=== PATIENT | male | born 1980 | race Two or more races ===

== ENCOUNTER 2024-12-22 21:02 | Inpatient (IN) | payer OTHER ==
[~2024-12-22] VITALS: Ht 160 cm; Wt 59.0 kg
--- NOTE | 2024-12-22 21:50 | ED.PDOC ---
History of present illness HPI Comments 44 y/o Australian speaking M, with a Hx of DM, is [id number] his sober living facility for hyperglycemia. Patient is a poor historian. He reports on being dropped off after being found hyperglycemic. He takes no medications, currently, for his DM. Patient reports on being asymptomatic. Chief Complaint: Hyperglycemia Time Seen by MD: 21:40 History of present illness: Nurses Notes, Medications, Allergies Allergies: Coded Allergies: NO KNOWN ALLERGIES (Unverified , 12/22/24) Information Source: Patient Mode of Arrival: Ambulatory Timing: Hours Duration: Since onset Prehospital treatment: Accucheck Past Medical History PAST MEDICAL HISTORY: DM All Other Systems: Reviewed and Negative (Comprehensive review of systems are negative unless stated in HPI) Physical Exam General Appearance: Mild Distress, Normal HEENT: Normal ENT Inspection, Pharynx Normal, TMs Normal Neck: Full Range of Motion, Non-Tender, Normal, Normal Inspection Respiratory: Chest Non-Tender, Lungs Clear, No Accessory Muscle Use, No Respiratory Distress, Normal Breath Sounds Cardiovascular: No Edema, No JVD, No Murmur, No Gallop, Normal Peripheral Pulses, Regular Rate/Rhythm Breast Exam: Deferred Gastrointestinal: No Organomegaly, Non Tender, No Pulsatile Mass, Normal Bowel Sounds, Soft Genitalia: Deferred Pelvic: Deferred Rectal: Deferred Extremities: No calf tenderness, Normal capillary refill, Normal inspection, Normal range of motion, Non-tender, No pedal edema Musculoskeletal : Apperance: Normal Neurologic: Alert, floor sander II-XII nml as Tested, No Motor Deficits, Normal Affect, Normal Mood, No Sensory Deficits Cerebellar Function: Normal Reflexes: Normal Skin: Dry, Normal Color, Warm Lymphatic: No Adenopathy Was a procedure done? Was a procedure done?: No Differential Diagnosis (DM) Differential Diagnosis: DKA, Hyperglycemia, Other (medication noncompliance ) X-Ray, Labs, Meds, VS Vital Signs Date Time Temp Pulse Resp B/P (MAP) Pulse Ox O2 Delivery O2 Flow Rate FiO2 12/22/24 21:05 96.9 95 20 133/85 100 96.9 Lab Test 12/22/24 22:16 12/22/24 21:45 Range/Units White Blood Count 3.5 L 4.4-10.8 10^3/uL Red Blood Count 3.50 L 4.5-5.90 10^6/uL Hemoglobin 10.9 L 13.5-17.5 g/dL Hematocrit 32.3 L 41.0-53.0 % Mean Corpuscular Volume 92.4 80.0-100.0 fL Mean Corpuscular Hemoglobin 31.2 28.0-32.0 pg Mean Corpuscular Hemoglobin Concent 33.7 32.0-36.0 g/dL Red Cell Distribution Width 13.9 11.8-14.3 % Platelet Count 192 140-450 10^3/uL Mean Platelet Volume 7.6 6.9-10.8 fL Neutrophils (%) (Auto) 53.3 37.0-80.0 % Lymphocytes (%) (Auto) 33.6 10.0-50.0 % Monocytes (%) (Auto) 11.0 0.0-12.0 % Eosinophils (%) (Auto) 1.5 0.0-7.0 % Basophils (%) (Auto) 0.6 0.0-2.0 % Neutrophils # (Auto) 1.8 1.6-8.6 10 ^3/uL Lymphocytes # (Auto) 1.2 0.4-5.4 10 ^3/uL Monocytes # (Auto) 0.4 0-1.3 10 ^3/uL Eosinophils # (Auto) 0.1 0-0.8 10 ^3/uL Basophils # (Auto) 0 0-0.2 10 ^3/uL Nucleated Red Blood Cells 0.0 % Sodium Level 125 L 136-145 mmol/L Potassium Level 4.1 3.5-5.1 mmol/L Chloride Level 90 L 98-107 mmol/L Carbon Dioxide Level 27 20-31 mmol/L Anion Gap 8 5-15 Blood Urea Nitrogen 8 L 9-23 mg/dL Creatinine 1.39 H 0.700-1.30 mg/dL Glomerular Filtration Rate Calc 63 >90 mL/min BUN/Creatinine Ratio 5.8 L 10.0-20.0 Serum Glucose 668 *H 74-106 mg/dL Calcium Level 9.2 8.7-10.4 mg/dL Total Bilirubin 0.6 0.2-1.0 mg/dL Aspartate Amino Transferase (AST) 45 H 13-40 U/L Alanine Aminotransferase (ALT) 42 H 7-40 U/L Alkaline Phosphatase 244 H 46-116 U/L Total Protein 7.9 5.7-8.2 g/dL Albumin 4.1 3.2-4.8 g/dL Blood Gas Specimen Type Venous Blood Gas Sample Site Vbg - n/a Blood Gas Patient Temperature 37.0 Arterial Blood Date Drawn [id number] Boubacar Test N/a Venous Blood pH 7.426 7.320-7.430 Venous Blood pCO2 at Patient Temp 37.9 L 38.0-54.0 mmHg Venous Blood pO2 at Patient Temp 66.2 H 23.0-48.0 mmHg Venous Blood HCO3 24.4 22.0-29.0 mmol/L Venous Blood Base Excess 0.3 -2.0-3.0 mmol/L Blood Gas Modality Room air FiO2 % 21.0 Specimen Drawn By Lab Time of 1ST Reevaluation: 22:10 Reevaluation 1ST: Unchanged Patient Education/Counseling: Diagnosis, Treatment, Need For Follow Up Family Education/Counseling: No Family Present SEPSIS Sepsis Screen Date sepsis recognized/suspect: Dec 22, 2024 Time Sepsis recognized/suspect: 2107 Recent Procedure: No On Antibiotic Therapy: No Respiratory Rate >20: No Heart Rate >90: Yes Temp<36 C (96.8 F) or >38.3 C: No SBP <90 or MAP <65 mmHG: No New Acute Mental Status Change: No Is the patient on CPAP, BIPAP,: No Physician Orders Urinalysis (12/22/24 21:29) Venous Blood Gas (12/22/24 21:29) NS (12/22/24 23:45) Vital Signs Date Time Temp Pulse Resp B/P (MAP) Pulse Ox O2 Delivery O2 Flow Rate FiO2 12/22/24 21:05 96.9 95 20 133/85 100 96.9 Laboratory Tests Test 12/22/24 22:16 White Blood Count 3.5 10^3/uL (4.4-10.8) L Departure 1 Departure Time of Disposition: 23:41 Impression: Primary Impression: Hyperglycemia Additional Impressions: Uncontrolled type 2 diabetes mellitus Acute renal injury Disposition: ADMITTED INPATIENT Condition: Guarded Discharged With: Self Comments Lab results reviewed. Patient has severe hyperglycemia in the 600s. Also acute renal injury with creatinine elevated 1.38. Patient was given IV fluids and insulin. Patient will need to be admitted for supportive care and further wo rkup. Critical Care Note Critical Care Time?: Yes (35 min-critical care time only) Critical care comment: Total critical care time: Approximately 36 minutes Due to a high probability of clinically significant, life threatening deterioration, the patient required my highest level of preparedness to intervene emergently and I personally spent this critical care time directly and personally managing the patient. This critical care time included obtaining a history; examining the patient; pulse oximetry; ordering and review of studies; arranging urgent treatment with development of a management plan; evaluation of patient's response to treatment; frequent reassessment; and, discussions with other providers. This critical care time was performed to assess and manage the high probability of imminent, life-threatening deterioration that could result in multi-organ failure. It was exclusive of separately billable procedures and treating other patients. Stability Stability form required: No Heart Score Heart Score: Heart Score Response (Comments) Value History N/A 0 EKG N/A 0 Age N/A 0 Risk Factors N/A 0 Troponin N/A 0 Total 0 I personally scribed for DANIELA GOODRICH MD ([email or web address]) on 12/22/24 at 21:50. Electronically submitted by Seth Araya ([email or web address]). DANIELA GOODRICH MD Dec 22, 2024 21:50
[2024-12-22 22:30] LABS: Hematocrit 32.3 % (41.0-53.0); Hemoglobin 10.9 g/dL (13.5-17.5); Mean Corpuscular Hemoglobin 31.2 pg (28.0-32.0); Mean Corpuscular Volume 92.4 fL (80.0-100.0); Nucleated Red Blood Cells % 0.0 %
[2024-12-22 22:47] LABS: Albumin 4.1 g/dL (3.2-4.8); Anion Gap 8 (5-15); BUN/Creatinine Ratio 5.8 (10.0-20.0); Calcium 9.2 mg/dL (8.7-10.4); Carbon Dioxide 27 mmol/L (20-31); Potassium 4.1 mmol/L (3.5-5.1); Total Protein 7.9 g/dL (5.7-8.2)
[2024-12-22 22:48] LABS: Bilirubin, Total 0.6 mg/dL (0.2-1.0)
[2024-12-22 22:50] LABS: Alanine Aminotransferase 42 U/L (7-40); Alkaline Phosphatase 244 U/L (46-116); Blood Urea Nitrogen 8 mg/dL (9-23); Chloride 90 mmol/L (98-107); Sodium 125 mmol/L (136-145)
[2024-12-22 22:57] LABS: Glucose 668 mg/dL (74-106)
[2024-12-23] VITALS (7 sets, daily range): BP systolic 105–134; BP diastolic 67–90; PULSE 84–95; RESP 16–18; TEMP 97.3–98.4; O2SAT 99–100
[2024-12-23 00:29] LABS: Magnesium 2.0 mg/dL (1.6-2.6)
[2024-12-23] MEDS ORDERED: MORPHINE SULFATE INJ 2 MG/ml SYRG IV PRN (00:30)
[2024-12-23] MEDS ORDERED: DEXTROSE (50%) 50ML SYRG IV PRN ×4 (00:30→16:30)
[2024-12-23] MEDS: SODIUM CHLORIDE 0.9% 1,000 ML IV SCH ×2 (00:30→04:58)
[2024-12-23] MEDS ORDERED: INSULIN DRIP 100 UNIT/100ML 100 ML IV SCH (00:30)
[2024-12-23 00:33] LABS: INR 0.97 (0.9-1.15); Partial Thromboplastin Time 28.2 SEC (24.5-34.5); Prothrombin Time 10.3 sec (9.3-11.8)
--- NOTE | 2024-12-23 00:37 | DVHHPRES ---
History of Present Illness Resident Creating Document: ANJALI STANTON RESIDENT History of Present Illness Roscoe Sun is a 44-year-old male patient who presents to the ED with chief complaint of blurry vision for the last week, associated with polyuria, polydipsia, diarrhea and dizziness. Patient says that he is currently homeless, previously lived in a jail but was kicked out approximately three months ago, and he has not been compliant with his medication (including his diabetic medication). He has been checking his blood glucose levels recently, but his glucometer could no longer read his glycemia values. Denies any other associated symptoms. Past medical history: Diabetes non-insulin dependent, diabetic foot status post amputation, alcohol abuse Surgical history: 1st right toe amputation approximately four months ago Family history: Father and mother have diabetes Social history: Currently he is homeless (next of kin would be mother). Ethanol abuse (four large beers a day) he has been sober for the past 15 days. Denies current tobacco and other drug abuse Allergies: Denies Home medication: Does not recall name of medication Patient seen and examined at bedside. Currently still complains of blurry vision. Patient will be admitted to ICU to initiate insulin drip. Past Medical History Per HPI Past Surgical History Per HPI Family History Per HPI Past Social History Per HPI Review of Systems Review of Systems Per HPI Allergies: Coded Allergies: NO KNOWN ALLERGIES (Unverified , 12/22/24) Medications Current Medications Medications Dose Ordered Sig/[place] Route Start Time Stop Time Status Last Admin Dose Admin Sodium Chloride 1,000 ml @ 60 mls/hr [id number] IV 12/23/24 00:30 Acetaminophen 325 mg Q4HP PRN PO 12/23/24 00:30 Enoxaparin Sodium 40 mg DAILY SC 12/23/24 10:00 Morphine Sulfate 2 mg Q4HPRN PRN IV 12/23/24 00:30 Insulin Human (Reg)/Sodium Chloride 100 ml @ 0.5 mls/hr Q24H IV 12/23/24 00:30 Diagnostic Test (Pha) 1 strip Q90MIN 12/23/24 01:30 Dextrose 50 ml PRN PRN IV 12/23/24 00:30 Insulin Glargine 15 units DAILY SC 12/24/24 10:00 Exam Vital Signs Vital Signs Date Time Temp Pulse Resp B/P (MAP) Pulse Ox O2 Delivery O2 Flow Rate FiO2 12/22/24 21:05 96.9 95 20 133/85 100 96.9 Exam Patient lying in bed, in no acute distress General: Lucid, cachectic, afebrile, mucosae are moist, bad dental hygiene Cardiovascular: Normal S1 and S2. No murmurs, gallops or rubs Respiratory: Normal ventilation mechanics. Clear lung sounds on auscultation Abdomen: Soft, nontender, no organomegaly, normal bowel sounds MSK/skin: Mobilizes 4 limbs. Skin is dry and warm Neurological: Oriented in 3 spheres. No motor no sensitive deficits. Pupils are isocoric and reactive Labs/Xrays Labs Test 12/22/24 22:26 12/22/24 22:16 12/22/24 21:45 Range/Units White Blood Count 3.5 L 4.4-10.8 10^3/uL Red Blood Count 3.50 L 4.5-5.90 10^6/uL Hemoglobin 10.9 L 13.5-17.5 g/dL Hematocrit 32.3 L 41.0-53.0 % Mean Corpuscular Volume 92.4 80.0-100.0 fL Mean Corpuscular Hemoglobin 31.2 28.0-32.0 pg Mean Corpuscular Hemoglobin Concent 33.7 32.0-36.0 g/dL Red Cell Distribution Width 13.9 11.8-14.3 % Platelet Count 192 140-450 10^3/uL Mean Platelet Volume 7.6 6.9-10.8 fL Neutrophils (%) (Auto) 53.3 37.0-80.0 % Lymphocytes (%) (Auto) 33.6 10.0-50.0 % Monocytes (%) (Auto) 11.0 0.0-12.0 % Eosinophils (%) (Auto) 1.5 0.0-7.0 % Basophils (%) (Auto) 0.6 0.0-2.0 % Neutrophils # (Auto) 1.8 1.6-8.6 10 ^3/uL Lymphocytes # (Auto) 1.2 0.4-5.4 10 ^3/uL Monocytes # (Auto) 0.4 0-1.3 10 ^3/uL Eosinophils # (Auto) 0.1 0-0.8 10 ^3/uL Basophils # (Auto) 0 0-0.2 10 ^3/uL Nucleated Red Blood Cells 0.0 % Sodium Level 125 L 136-145 mmol/L Potassium Level 4.1 3.5-5.1 mmol/L Chloride Level 90 L 98-107 mmol/L Carbon Dioxide Level 27 20-31 mmol/L Anion Gap 8 5-15 Blood Urea Nitrogen 8 L 9-23 mg/dL Creatinine 1.39 H 0.700-1.30 mg/dL Glomerular Filtration Rate Calc 63 >90 mL/min BUN/Creatinine Ratio 5.8 L 10.0-20.0 Serum Glucose 668 *H 74-106 mg/dL Hemoglobin A1c 12.6 H <5.7 % A1C Calcium Level 9.2 8.7-10.4 mg/dL Phosphorus Level 3.4 2.4-5.1 mg/dL Magnesium Level 2.0 1.6-2.6 mg/dL Total Bilirubin 0.6 0.2-1.0 mg/dL Aspartate Amino Transferase (AST) 45 H 13-40 U/L Alanine Aminotransferase (ALT) 42 H 7-40 U/L Alkaline Phosphatase 244 H 46-116 U/L Total Protein 7.9 5.7-8.2 g/dL Albumin 4.1 3.2-4.8 g/dL Blood Gas Specimen Type Venous Blood Gas Sample Site Vbg - n/a Blood Gas Patient Temperature 37.0 Arterial Blood Date Drawn [id number] Boubacar Test N/a Venous Blood pH 7.426 7.320-7.430 Venous Blood pCO2 at Patient Temp 37.9 L 38.0-54.0 mmHg Venous Blood pO2 at Patient Temp 66.2 H 23.0-48.0 mmHg Venous Blood HCO3 24.4 22.0-29.0 mmol/L Venous Blood Base Excess 0.3 -2.0-3.0 mmol/L Blood Gas Modality Room air FiO2 % 21.0 Specimen Drawn By Lab SEPSIS Sepsis Screen Date sepsis recognized/suspect: Dec 22, 2024 Time Sepsis recognized/suspect: 2107 Recent Procedure: No On Antibiotic Therapy: No Respiratory Rate >20: No Heart Rate >90: Yes Temp<36 C (96.8 F) or >38.3 C: No SBP <90 or MAP <65 mmHG: No New Acute Mental Status Change: No Is the patient on CPAP, BIPAP,: No Physician Orders Urinalysis (12/22/24 21:29) Venous Blood Gas (12/22/24 21:29) Sodium Chloride 0.9% (12/22/24 23:45) Drug Screen (12/22/24 23:54) PTPTT (12/22/24 23:54) Beta-Hydroxybutyrate (12/22/24 23:54) Lactic Acid W/ Reflex Order (12/22/24 23:54) Thyroid Stimulating Hormone (12/22/24 23:54) Vitamin D, 25-Hydroxy (12/22/24 23:54) Vitamin B12 (12/22/24 23:54) Osmolality, Serum (12/23/24 00:17) Chest Xray 1 View (12/23/24 00:18) Sodium Chloride 0.9% (12/23/24 00:30) Hiv 1&2 Antibody (12/23/24 00:20) Acute Hepatitis Panel (12/23/24 00:20) Treponema Pallidum Antibody (12/23/24 00:20) Chlamydia/Gc Amplification (12/23/24 00:20) Blood Alcohol (12/23/24 00:20) Admit (12/23/24 00:24) Code Status (12/23/24 00:24) Acetaminophen Tablet (Tylenol Tablet) (12/23/24 00:30) Enoxaparin Sodium (Lovenox) (12/23/24 10:00) Npo (Nothing By Mouth) Diet (12/23/24 Breakfast) Echo 2d Mode Cardiac Dop (12/23/24 00:24) Carotid Duplx W Color Dop (12/23/24 00:24) Morphine Sulfate Injection (12/23/24 00:30) Oxygen By Nasal Cannula (12/23/24 00:24) Stat Ekg For Chest Pain (12/23/24 00:24) Notify Md Of Changes From Base (12/23/24 00:24) Tumbling Machine Operator For 24 Hours (12/23/24 00:24) Emergency Dysrhythmia Protocol (12/23/24 00:24) Rhythm Strips Once Every Shift (12/23/24 00:24) Insulin Drip 100 Unit/100ml (Myxredlin 1 (12/23/24 00:30) Glucose Blood (Accu-Chek Comfort Curve T (12/23/24 01:30) D/C All Diabetic Medications (12/23/24 00:24) Insulin Drip Protocol (12/23/24 00:24) Dextrose 50% Syringe (12/23/24 00:30) Insulin Lantus (Glargine) (Lantus) (12/24/24 10:00) Comprehensive Metabolic Panel (12/23/24 04:00) Complete Blood Count (12/23/24 04:00) Osmolality, Serum (12/23/24 04:00) Vital Signs Date Time Temp Pulse Resp B/P (MAP) Pulse Ox O2 Delivery O2 Flow Rate FiO2 12/22/24 21:05 96.9 95 20 133/85 100 96.9 Laboratory Tests Test 12/22/24 22:16 Lactic Acid Level Pending White Blood Count 3.5 10^3/uL (4.4-10.8) L Assessment/Plan Assessment/Plan Hyperosmolar hyperglycemic state Uncontrolled diabetes (hemoglobin A1c 12.6) Diabetic foot status post right hallux amputation Patient admitted to ICU due to insulin protocol for HHS Patient presented hyperglycemia, increase serum osmolarity, and normal pH/bicarbonate. Patient's symptoms were blurry vision, improving with treatment. Currently on IV insulin drip and IV fluids Keep patient NPO at this time. CARLOS hemodynamically mediated (VMN) Continue IV fluids Monitor labs Transaminitis Ethanol abuse Counseled strongly on cessation Serum alcohol was negative Ordered UDS We will monitor CMP Homelessness Evaluate need for social secretary consult Goals of care discussed with patient for over 18 minutes: Full code status Discussed plan with Dr. Mar, patient and nurses: Patient currently in ICU status due to requirement of insulin drip, IV fluids, and close monitoring of BNP. Patient has poor prognosis. Plan discussed with: Patient, Other (Nurses) My Orders Orders - ANJALI STANTON RESIDENT Procedure Category Date Status Time Osmolality, Serum LAB 12/23/24 In Process 00:17 Chest Xray 1 View XY 12/23/24 Taken 00:18 Sodium Chloride 0.9% PHA 12/23/24 In Process 00:30 Hiv 1&2 Antibody LAB 12/23/24 Logged 00:20 Acute Hepatitis Panel LAB 12/23/24 Logged 00:20 Treponema Pallidum LAB 12/23/24 Logged Antibody 00:20 Chlamydia/Gc LAB 12/23/24 Logged Amplification 00:20 Blood Alcohol LAB 12/23/24 Logged 00:20 Admit ADMIT 12/23/24 Transmitted 00:24 Code Status CODE 12/23/24 Transmitted 00:24 Acetaminophen Tablet PHA 12/23/24 In Process (Tylenol Tablet) 00:30 Enoxaparin Sodium PHA 12/23/24 In Process (Lovenox) 10:00 Npo (Nothing By DIET 12/23/24 Transmitted Mouth) Diet Breakfast Echo 2d Mode Cardiac US 12/23/24 Logged DOP 00:24 Carotid Duplx W Color US 12/23/24 Logged DOP 00:24 Morphine Sulfate PHA 12/23/24 In Process Injection 00:30 Oxygen By Nasal RT 12/23/24 Transmitted Cannula 00:24 Stat Ekg For Chest RUBEN 12/23/24 In Process Pain 00:24 Notify Of Changes [facility] 12/23/24 In Process From Base 00:24 Tumbling Machine Operator For RUBEN 12/23/24 In Process 24 Hours 00:24 Emergency Dysrhythmia RUBEN 12/23/24 In Process Protocol 00:24 Rhythm Strips Once RUBEN 12/23/24 In Process Every Shift 00:24 Insulin Drip 100 PHA 12/23/24 In Process Unit/100ml (Myxredlin 00:30 Glucose Blood PHA 12/23/24 In Process (Accu-Chek Comfort 01:30 D/C All Diabetic RUBEN 12/23/24 In Process Medications 00:24 Insulin Drip Protocol RUBEN 12/23/24 In Process 00:24 Dextrose 50% Syringe PHA 12/23/24 In Process 00:30 Insulin Lantus PHA 12/24/24 In Process (Glargine) (Lantus) 10:00 Comprehensive LAB 12/23/24 Logged Metabolic Panel 04:00 Complete Blood Count LAB 12/23/24 Logged 04:00 Osmolality, Serum LAB 12/23/24 Logged 04:00 Date of Service: Dec 23, 2024 Billing Provider: GUDELIA MAR MD Common Visit Codes: 29140-[id number] INP/OBS CARE (HIGH) Secondary Visit Codes: [id number] CARE PLAN 30 MINUTES ANJALI STANTON RESIDENT Dec 23, 2024 00:37
--- NOTE | 2024-12-23 00:48 | DVH ---
CHEST RADIOGRAPH Indication: PNA Technique: Single frontal view of the chest was obtained COMPARISON: None FINDINGS: Lungs and pleural spaces are clear. Cardiac silhouette and jaun are within normal limits. Bones and s oft tissues demonstrate no significant abnormality. IMPRESSION: 1. No acute disease.
[2024-12-23] MEDS: ACCU-CHEK COMFORT CURVE STRIP VI SCH ×4 (01:50→16:32)
[2024-12-23] MEDS: InsuLIN REG 1unit/0.01ml Soln (100units/ml) SC ONE (02:03)
[2024-12-23] MEDS: INSULIN LANTUS (GLARGINE) 1 /0.01ml (100units/ml) SC ONE (02:04)
[2024-12-23] MEDS: SODIUM CHLORIDE 0.9% 1,000 ML IV ONE ×3 (02:22→03:52)
[2024-12-23] MEDS: INSULIN DRIP 100 UNIT/100ML 100 ML IV SCH (03:48)
[2024-12-23 04:53] LABS: Urine Protein, UAD Negative (Negative)
[2024-12-23 06:01] LABS: Hematocrit 31.2 % (41.0-53.0); Hemoglobin 10.9 g/dL (13.5-17.5); Mean Corpuscular Hemoglobin 31.6 pg (28.0-32.0); Mean Corpuscular Volume 90.7 fL (80.0-100.0); Nucleated Red Blood Cells % 0.1 %
[2024-12-23 06:14] LABS: Alanine Aminotransferase 38 U/L (7-40); Albumin 3.6 g/dL (3.2-4.8); Anion Gap 11 (5-15); BUN/Creatinine Ratio 8.0 (10.0-20.0); Carbon Dioxide 23 mmol/L (20-31); Chloride 103 mmol/L (98-107); Sodium 137 mmol/L (136-145); Total Protein 7.1 g/dL (5.7-8.2)
[2024-12-23 06:15] LABS: Bilirubin, Total 0.4 mg/dL (0.2-1.0)
[2024-12-23 06:17] LABS: Alkaline Phosphatase 229 U/L (46-116); Blood Urea Nitrogen 7 mg/dL (9-23); Calcium 8.3 mg/dL (8.7-10.4); Glucose 324 mg/dL (74-106); Potassium 3.1 mmol/L (3.5-5.1)
[2024-12-23 06:19] LABS: Amphetamine Screen, Urine Neg (NEGATIVE); Barbiturate Scree,Urine Neg (NEGATIVE); Benzodiazephine Screen, Urine Neg (NEGATIVE); Cannabinoid Screen, Urine Neg (NEGATIVE); Cocaine Screen, Urine Neg (NEGATIVE); Opiate Scree,Urine Neg (NEGATIVE); Phencyclidine Screen, Urine Neg (NEGATIVE)
[2024-12-23] MEDS ORDERED: InsuLIN REG 1unit/0.01ml Soln (100units/ml) SC SCH ×2 (07:00→22:00)
[2024-12-23] MEDS: InsuLIN REG 1unit/0.01ml Soln (100units/ml) SC SCH ×2 (08:00→16:32)
[2024-12-23 08:42] LABS: Carbon Dioxide 27 mmol/L (20-31)
--- NOTE | 2024-12-23 08:45 | DVH ---
Carotid Duplex Clinical History: Uncontrolled diabetes ([facility]HS) Comparison: None Technique: Duplex Doppler evaluation of the extracranial carotid and vertebral arteries including color Doppler and spectral/pulsed waveform analysis was performed. Findings: RIGHT SIDE: The peak systolic velocities are 53 cm/s in the CCA, 54 cm/s in the ICA. The ICA/CCA ratio is 1.0. The external carotid artery is patent with peak systolic velocity of 91 cm/s proximally. There is appropriate antegrade flow in the right vertebral artery. LEFT SIDE: The peak systolic velocities are 62 cm/s in the CCA, 72 cm/s in the ICA. The ICA/CCA ratio is 1.2. The external carotid artery is patent with peak systolic velocity of 85 cm/s proximally. There is appropriate antegrade flow in the left vertebral artery. IMPRESSION: No hemodynamically significant stenosis noted in the right carotid system. No hemodynamically significant stenosis noted in the left carotid system. Reference: Radiology 2003; 229:340-346 Normal ICA PSV is <125 cm/sec and no plaque or intimal thickening is visible sonographically addition al criteria include ICA/CCA PSV ratio <2.0 and ICA EDV <40 cm/sec <50% ICA stenosis ICA PSV is <125 cm/sec and plaque or intimal thickening is visible sonographically additional criteria include ICA/CCA PSV ratio <2.0 and ICA EDV <40 cm/sec 50-69% ICA stenosis ICA PSV is 125-230 cm/sec and plaque is visible sonographically additional criter ia include ICA/CCA PSV ratio of 2.0-4.0 and ICA EDV of 40-100 cm/sec 70% ICA stenosis but less than near occlusion ICA PSV is >230 cm/sec and visible plaque and luminal narrowing are seen at hinton-scale and color Doppler ultrasound (the higher the Doppler parameters lie above the threshold of 230 cm/sec, the greater the likelihood of severe disease) additional criteria include ICA/CCA PSV ratio >4 and ICA EDV >100 cm/sec
[2024-12-23 08:50] LABS: BUN/Creatinine Ratio 10.1 (10.0-20.0)
[2024-12-23 08:57] LABS: Anion Gap 10 (5-15); Blood Urea Nitrogen 8 mg/dL (9-23); Calcium 8.4 mg/dL (8.7-10.4); Chloride 104 mmol/L (98-107); Glucose 109 mg/dL (74-106); Potassium 3.0 mmol/L (3.5-5.1); Sodium 141 mmol/L (136-145)
[2024-12-23] MEDS: ENOXAPARIN SOD 40 MG/0.4 ML SYRINGE SC SCH (09:22)
[2024-12-23 12:25] LABS: Chloride 100 mmol/L (98-107); Sodium 136 mmol/L (136-145)
[2024-12-23 12:26] LABS: Anion Gap 9 (5-15); Carbon Dioxide 27 mmol/L (20-31)
[2024-12-23 12:32] LABS: BUN/Creatinine Ratio 8.3 (10.0-20.0)
[2024-12-23 12:37] LABS: Blood Urea Nitrogen 6 mg/dL (9-23); Calcium 8.5 mg/dL (8.7-10.4); Glucose 275 mg/dL (74-106); Potassium 3.5 mmol/L (3.5-5.1)
[2024-12-23 16:31] LABS: Chloride 102 mmol/L (98-107); Potassium 3.5 mmol/L (3.5-5.1); Sodium 138 mmol/L (136-145)
[2024-12-23 16:32] LABS: Anion Gap 8 (5-15); Calcium 9.0 mg/dL (8.7-10.4); Carbon Dioxide 28 mmol/L (20-31)
[2024-12-23 16:37] LABS: BUN/Creatinine Ratio 8.5 (10.0-20.0); Glucose 83 mg/dL (74-106)
[2024-12-23 16:39] LABS: Blood Urea Nitrogen 7 mg/dL (9-23)
[2024-12-23] MEDS ORDERED: ACCU-CHEK COMFORT CURVE STRIP VI SCH (17:00)
--- NOTE | 2024-12-23 17:00 | DVHPN2 ---
Reviewed: H&P Changes from previous H/P or p: No Changes General: Per HPI Objective Vitals Vital Signs Date Time Temp Pulse Resp B/P (MAP) Pulse Ox O2 Delivery O2 Flow Rate FiO2 12/23/24 12:51 97.5 88 16 117/86 (96) 99 97.5 12/23/24 07:58 Room Air* 0 21 Intake/Output Intake and Output 12/23/24 07:00 Output Total 800 ml Balance -800 ml Output Urine Total 800 ml Exam General: Lucid, cachectic, afebrile, mucosae are moist, bad dental hygiene Cardiovascular: Normal S1 and S2. No murmurs, gallops or rubs Respiratory: Normal ventilation mechanics. Clear lung sounds on auscultation Abdomen: Soft, nontender, no organomegaly, normal bowel sounds MSK/skin: Mobilizes 4 limbs. Skin is dry and warm Neurological: Oriented in 3 spheres. No motor no sensitive deficits. Pupils are isocoric and reactive Medications Current Medications Medications Dose Ordered Sig/[place] Route Start Time Stop Time Status Last Admin Dose Admin Acetaminophen 325 mg Q4HP PRN PO 12/23/24 00:30 Enoxaparin Sodium 40 mg DAILY SC 12/23/24 10:00 12/23/24 09:22 40 MG Morphine Sulfate 2 mg Q4HPRN PRN IV 12/23/24 00:30 Insulin Glargine 15 units DAILY SC 12/24/24 10:00 Sodium Chloride 1,000 ml @ 60 mls/hr [id number] IV 12/23/24 03:45 12/23/24 04:58 60 MLS/HR Insulin Human Regular HS SC 12/23/24 22:00 UNV Insulin Human Regular AC SC 12/23/24 07:00 UNV Dextrose 50 ml UD PRN IV 12/23/24 06:45 Cancel Diagnostic Test (Pha) 1 strip ACHS 12/23/24 17:00 Cancel Diagnostic Test (Pha) 1 strip ACHS 12/23/24 17:00 12/23/24 16:32 1 STRIP Insulin Human Regular ACHS SC 12/23/24 17:00 Dextrose 50 ml UD PRN IV 12/23/24 16:30 Laboratory Results Laboratory Tests 12/23/24 04:36 12/23/24 15:54 Chemistry Test 12/22/24 22:16 12/23/24 04:36 12/23/24 07:54 12/23/24 11:57 Albumin 4.1 g/dL (3.2-4.8) 3.6 g/dL (3.2-4.8) Calcium Level 9.2 mg/dL (8.7-10.4) 8.3 mg/dL (8.7-10.4) L 8.4 mg/dL (8.7-10.4) L 8.5 mg/dL (8.7-10.4) L Magnesium Level 2.0 mg/dL (1.6-2.6) Phosphorus Level 3.4 mg/dL (2.4-5.1) Total Protein 7.9 g/dL (5.7-8.2) 7.1 g/dL (5.7-8.2) Test 12/23/24 15:54 Calcium Level 9.0 mg/dL (8.7-10.4) Coagulation Test 12/22/24 22:26 Prothrombin Time 10.3 sec (9.3-11.8) Prothrombin Time INR 0.97 (0.9-1.15) Activated Partial Thromboplast Time 28.2 SEC (24.5-34.5) LFT Test 12/22/24 22:16 12/23/24 04:36 Alanine Aminotransferase (ALT) 42 U/L (7-40) H 38 U/L (7-40) Alkaline Phosphatase 244 U/L (46-116) H 229 U/L (46-116) H Aspartate Amino Transferase (AST) 45 U/L (13-40) H 38 U/L (13-40) Total Bilirubin 0.6 mg/dL (0.2-1.0) 0.4 mg/dL (0.2-1.0) HgA1c, TSH Test 12/22/24 22:16 Hemoglobin A1c 12.6 % A1C (<5.7) H Thyroid Stimulating Hormone (TSH) 4.35 uIU/mL (0.55-4.78) Urinalysis Test 12/23/24 03:45 Urine Color Colorless (Yellow) Urine Clarity Clear (Clear) Urine pH 6.0 (5.0-9.0) Urine Specific [place] 1.018 (1.001-1.035) Urine Protein Negative (Negative) Urine Ketones Trace (Negative) Urine Blood Negative /uL (Negative) Urine Nitrite Negative (Negative) Urine Bilirubin Negative (Negative) Urine Urobilinogen Normal mg/dL (Negative) Urine Leukocyte Esterase Negative /uL (Negative) Urine RBC None seen /hpf (0 - 3) Urine Microscopic WBC < 1 /HPF (0-3) Urine Squamous Epithelial Cells None seen /hpf (<5) Urine Bacteria None seen /hpf (None Seen) Urine Glucose 4+ mg/dL (Normal) H Blood Gas Results Test 12/22/24 21:45 FiO2 % 21.0 Labs and/or images reviewed: Labs reviewed by me, Image(s) reviewed by me Assessment/Plan Assessment/Plan 44-year-old male patient with pmhx Diabetes non-insulin dependent, diabetic foot status post amputation, alcohol abuse, who presents to the ED with chief complaint of blurry vision for the last week, associated with polyuria, polydipsia, diarrhea and dizziness. Patient says that he is currently homeless, previously lived in a jail but was kicked out approximately three months ago, and he has not been compliant with his medication (including his diabetic medication). He has been checking his blood glucose levels recently, but his glucometer could no longer read his glycemia values. Denies any other associated symptoms. 12/23: Patient is here for alcohol rehab, he left arm is medications at home. He takes sliding scale insulin likely at home to control his diabetes altered his metformin. We will start patient on basal insulin and continue low carb d iet. Continue sliding scale insulin mild a.c. HS. We will refills all medications prior to discharge. Patient appears to have low CIWA score, no concern for withdrawal at this time. - we will continue 15 nightly insulin and continuing monitoring a.c. HS with mild SSI, patient glucose looks well, he can probably go home with long-acting insulin and metformin only. 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 HS Continue other home medications Slow IV fluids Med surge Full code Plan discussed with: Patient My Orders Orders - BETHANIE LOYA MD Procedure Category Date Status Time Consistent DIET 12/23/24 Transmitted Carb(Ccho)Diabetes Lunch Glucose Blood PHA 12/23/24 In Process (Accu-Chek Comfort 17:00 Insulin R (Human) PHA 12/23/24 In Process (Insulin R) 17:00 Dextrose 50% Syringe PHA 12/23/24 In Process 16:30 Date of Service: Dec 23, 2024 Billing Provider: BETHANIE LOYA MD Common Visit Codes: [id number] INP/OBS CARE(HIGH) BETHANIE LOYA MD Dec 23, 2024 17:00
[2024-12-23 21:12] LABS: Chloride 100 mmol/L (98-107); Potassium 3.5 mmol/L (3.5-5.1)
[2024-12-23 21:13] LABS: Anion Gap 8 (5-15); Calcium 9.1 mg/dL (8.7-10.4); Carbon Dioxide 26 mmol/L (20-31)
[2024-12-23 21:18] LABS: BUN/Creatinine Ratio 8.0 (10.0-20.0)
[2024-12-23 21:19] LABS: Blood Urea Nitrogen 7 mg/dL (9-23); Glucose 200 mg/dL (74-106); Sodium 134 mmol/L (136-145)
[2024-12-24] VITALS (8 sets, daily range): BP systolic 81–167; BP diastolic 60–112; PULSE 86–97; RESP 18–19; TEMP 97.6–98.6; O2SAT 98–100
[2024-12-24 08:06] LABS: Anion Gap 9 (5-15); Carbon Dioxide 25 mmol/L (20-31); Chloride 101 mmol/L (98-107); Potassium 3.8 mmol/L (3.5-5.1)
[2024-12-24 08:07] LABS: Calcium 8.8 mg/dL (8.7-10.4)
[2024-12-24 08:12] LABS: BUN/Creatinine Ratio 7.9 (10.0-20.0); Blood Urea Nitrogen 8 mg/dL (9-23); Glucose 351 mg/dL (74-106); Sodium 135 mmol/L (136-145)
[2024-12-24] MEDS: INSULIN LANTUS (GLARGINE) 1 /0.01ml (100units/ml) SC SCH ×2 (09:51→21:01)
[2024-12-24 11:19] LABS: Hepatitis B Surface Antigen Negative (Negative); Hepatitis C Antibody Negative (Negative)
--- NOTE | 2024-12-24 15:21 | DVHPN2 ---
Subjective Seen at bedside, doing well. Reviewed: H&P Changes from previous H/P or p: No Changes General: Per HPI Objective Vitals Vital Signs Date Time Temp Pulse Resp B/P (MAP) Pulse Ox O2 Delivery O2 Flow Rate FiO2 12/24/24 13:00 97.7 87 18 108/74 (85) 100 97.7 12/24/24 08:00 Room Air* 0 21 Intake/Output Intake and Output 12/24/24 07:00 Intake Total 1560 ml Balance 1560 ml Intake Oral 1560 ml # Voids 1 # Bowel Movements 1 Exam General: Lucid, cachectic, afebrile, mucosae are moist, bad dental hygiene Cardiovascular: Normal S1 and S2. No murmurs, gallops or rubs Respiratory: Normal ventilation mechanics. Clear lung sounds on auscultation Abdomen: Soft, nontender, no organomegaly, normal bowel sounds MSK/skin: Mobilizes 4 limbs. Skin is dry and warm Neurological: Oriented in 3 spheres. No motor no sensitive deficits. Pupils are isocoric and reactive Medications Current Medications Medications Dose Ordered Sig/[place] Route Start Time Stop Time Status Last Admin Dose Admin Acetaminophen 325 mg Q4HP PRN PO 12/23/24 00:30 Enoxaparin Sodium 40 mg DAILY SC 12/23/24 10:00 12/24/24 09:52 40 MG Morphine Sulfate 2 mg Q4HPRN PRN IV 12/23/24 00:30 Sodium Chloride 1,000 ml @ 60 mls/hr [id number] IV 12/23/24 03:45 12/24/24 12:12 60 MLS/HR Insulin Human Regular HS SC 12/23/24 22:00 UNV Insulin Human Regular AC SC 12/23/24 07:00 UNV Dextrose 50 ml UD PRN IV 12/23/24 06:45 Cancel Diagnostic Test (Pha) 1 strip ACHS 12/23/24 17:00 Cancel Diagnostic Test (Pha) 1 strip ACHS 12/23/24 17:00 12/24/24 11:37 1 STRIP Insulin Human Regular ACHS SC 12/23/24 17:00 12/24/24 06:18 10 UNITS Dextrose 50 ml UD PRN IV 12/23/24 16:30 Insulin Glargine 20 units HS SC 12/24/24 22:00 Laboratory Results Laboratory Tests 12/23/24 04:36 12/24/24 06:56 Chemistry Test 12/23/24 15:54 12/23/24 20:44 12/24/24 06:56 Calcium Level 9.0 mg/dL (8.7-10.4) 9.1 mg/dL (8.7-10.4) 8.8 mg/dL (8.7-10.4) Urinalysis Test 12/23/24 03:45 Urine Color Colorless (Yellow) Urine Clarity Clear (Clear) Urine pH 6.0 (5.0-9.0) Urine Specific [place] 1.018 (1.001-1.035) Urine Protein Negative (Negative) Urine Ketones Trace (Negative) Urine Blood Negative /uL (Negative) Urine Nitrite Negative (Negative) Urine Bilirubin Negative (Negative) Urine Urobilinogen Normal mg/dL (Negative) Urine Leukocyte Esterase Negative /uL (Negative) Urine RBC None seen /hpf (0 - 3) Urine Microscopic WBC < 1 /HPF (0-3) Urine Squamous Epithelial Cells None seen /hpf (<5) Urine Bacteria None seen /hpf (None Seen) Urine Glucose 4+ mg/dL (Normal) H Labs and/or images reviewed: Labs reviewed by me, Image(s) reviewed by me Assessment/Plan Assessment/Plan 44-year-old male patient with pmhx Diabetes non-insulin dependent, diabetic foot status post amputation, alcohol abuse, who presents to the ED with chief complaint of blurry vision for the last week, associated with polyuria, polydipsia, diarrhea and dizziness. Patient says that he is currently homeless, previously lived in a [place] [facility] but was kicked out approximately three months ago, and he has not been compliant with his medication (including his diabetic medication). He has been checking his blood glucose levels recently, but his glucometer could no longer read his glycemia values. Denies any other associated symptoms. 12/23: Patient is here for alcohol rehab, he left arm is medications at home. He takes sliding scale insulin likely at home to control his diabetes altered his metformin. We will start patient on basal insulin and continue low carb d iet. Continue sliding scale insulin mild a.c. HS. We will refills all medications prior to discharge. Patient appears to have low CIWA score, no concern for withdrawal at this time. - we will continue 15 nightly insulin and continuing monitoring a.c. HS with mild SSI, patient glucose looks well, he can probably go home with long-acting insulin and metformin only. 12/24: Patient doing well, had hyperglycemia again overnight went from 200 to 500s, unknown reason why, unclear if patient has had needs next. We will continue and increase Lantus to 20 and continue scale at moderate a.c. HS. Monitor again for another 24 hours. 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 HS Continue other home medications Slow IV fluids Med surge Full code Plan discussed with: Patient My Orders Orders - BETHANIE LOYA MD Procedure Category Date Status Time Glucose Blood PHA 12/23/24 In Process (Accu-Chek Comfort 17:00 Insulin R (Human) PHA 12/23/24 In Process (Insulin R) 17:00 Dextrose 50% Syringe PHA 12/23/24 In Process 16:30 Insulin Lantus PHA 12/24/24 In Process (Glargine) (Lantus) 22:00 Date of Service: Dec 24, 2024 Billing Provider: BETHANIE LOYA MD Common Visit Codes: [id number] INP/OBS CARE(HIGH) BETHANIE LOYA MD Dec 24, 2024 15:21
[2024-12-24] MEDS ORDERED: DEXTROSE (50%) 50ML SYRG IV PRN (15:30)
[2024-12-24] MEDS: ACCU-CHEK COMFORT CURVE STRIP VI SCH (17:01)
[2024-12-24] MEDS: InsuLIN REG 1unit/0.01ml Soln (100units/ml) SC SCH ×2 (17:13→21:02)
[2024-12-24] MEDS: ACETAMINOPHEN 325 MG TAB PO PRN (20:50)
[2024-12-25 01:00] VITALS: BP 101/63; PULSE 101; RESP 20; TEMP 98.2; O2SAT 98
[2024-12-25 03:07] LABS: Chlamydia Trachomatis, NAA Negative (Negative); Neisseria gonorrhoeae, NAA Negative (Negative)
[2024-12-25 05:00] VITALS: BP 96/57; PULSE 107; RESP 20; TEMP 98.2; O2SAT 100
[2024-12-25 08:00] VITALS: PULSE 102
[2024-12-25 09:10] VITALS: BP 152/101; PULSE 96; RESP 18; TEMP 98.3; O2SAT 97
[2024-12-25] MEDS ORDERED: METF-489 PO (12:10)
[2024-12-25] MEDS ORDERED: INSUINJ37 SC (12:10)
--- NOTE | 2024-12-25 12:11 | DVHDS2 ---
Discharge Summary Date of Admission Dec 23, 2024 at 00:24 Date of Discharge: Dec 25, 2024 Labs/Diagnostic Data: Laboratory Results Test 12/25/24 10:43 12/24/24 06:56 12/23/24 04:36 12/23/24 03:45 POC Glucose 218 mg/dl (70-106) Sodium Level 135 mmol/L (136-145) Potassium Level 3.8 mmol/L (3.5-5.1) Chloride Level 101 mmol/L (98-107) Carbon Dioxide Level 25 mmol/L (20-31) Anion Gap 9 (5-15) Blood Urea Nitrogen 8 mg/dL (9-23) Creatinine 1.01 mg/dL (0.700-1.30) Glomerular Filtration Rate Calc 93 mL/min (>90) BUN/Creatinine Ratio 7.9 (10.0-20.0) Serum Glucose 351 mg/dL (74-106) Calcium Level 8.8 mg/dL (8.7-10.4) White Blood Count 3.1 10^3/uL (4.4-10.8) Red Blood Count 3.44 10^6/uL (4.5-5.90) Hemoglobin 10.9 g/dL (13.5-17.5) Hematocrit 31.2 % (41.0-53.0) Mean Corpuscular Volume 90.7 fL (80.0-100.0) Mean Corpuscular Hemoglobin 31.6 pg (28.0-32.0) Mean Corpuscular Hemoglobin Concent 34.8 g/dL (32.0-36.0) Red Cell Distribution Width 14.3 % (11.8-14.3) Platelet Count 177 10^3/uL (140-450) Mean Platelet Volume 7.9 fL (6.9-10.8) Neutrophils (%) (Auto) 51.0 % (37.0-80.0) Lymphocytes (%) (Auto) 39.5 % (10.0-50.0) Monocytes (%) (Auto) 6.6 % (0.0-12.0) Eosinophils (%) (Auto) 2.5 % (0.0-7.0) Basophils (%) (Auto) 0.4 % (0.0-2.0) Neutrophils # (Auto) 1.6 10 ^3/uL (1.6-8.6) Lymphocytes # (Auto) 1.2 10 ^3/uL (0.4-5.4) Monocytes # (Auto) 0.2 10 ^3/uL (0-1.3) Eosinophils # (Auto) 0.1 10 ^3/uL (0-0.8) Basophils # (Auto) 0 10 ^3/uL (0-0.2) Nucleated Red Blood Cells 0.1 % Serum Osmolality 308 mOsm/kg (278-298) Total Bilirubin 0.4 mg/dL (0.2-1.0) Aspartate Amino Transferase (AST) 38 U/L (13-40) Alanine Aminotransferase (ALT) 38 U/L (7-40) Alkaline Phosphatase 229 U/L (46-116) Total Protein 7.1 g/dL (5.7-8.2) Albumin 3.6 g/dL (3.2-4.8) Urine Color Colorless (Yellow) Urine Clarity Clear (Clear) Urine pH 6.0 (5.0-9.0) Urine Specific [place] 1.018 (1.001-1.035) Urine Protein Negative (Negative) Urine Ketones Trace (Negative) Urine Blood Negative /uL (Negative) Urine Nitrite Negative (Negative) Urine Bilirubin Negative (Negative) Urine Urobilinogen Normal mg/dL (Negative) Urine Leukocyte Esterase Negative /uL (Negative) Urine RBC None seen /hpf (0 - 3) Urine Microscopic WBC < 1 /HPF (0-3) Urine Squamous Epithelial Cells None seen /hpf (<5) Urine Bacteria None seen /hpf (None Seen) Urine Glucose 4+ mg/dL (Normal) Urine Opiates Screen Neg (NEGATIVE) Urine Fentanyl Screen Neg (NEGATIVE) Urine Barbiturates Screen Neg (NEGATIVE) Urine Phencyclidine Screen Neg (NEGATIVE) Urine Amphetamines Screen Neg (NEGATIVE) Urine Benzodiazepines Screen Neg (NEGATIVE) Urine Cocaine Screen Neg (NEGATIVE) Urine Cannabinoids Screen Neg (NEGATIVE) Chlamydia trachomatis (STALIN) Negative (Negative) Neisseria gonorrhoeae (STALIN) Negative (Negative) Test 12/23/24 00:51 12/22/24 22:26 12/22/24 22:16 12/22/24 21:45 Plasma/Serum Blood Alcohol < 3.0 mg/dL (<10) Treponema pallidum Antibody Non-reactive (Negative) Hepatitis A IgM Antibody Negative Hepatitis B Surface Antigen Negative (Negative) Hepatitis B Core IgM Antibody Negative (Negative) Hepatitis C Antibody Negative (Negative) HIV (1&2) Antibody Negative (Negative) Prothrombin Time 10.3 sec (9.3-11.8) Prothrombin Time INR 0.97 (0.9-1.15) Activated Partial Thromboplast Time 28.2 SEC (24.5-34.5) Hemoglobin A1c 12.6 % A1C (<5.7) Lactic Acid Level 1.1 mmol/L (0.4-2.0) Phosphorus Level 3.4 mg/dL (2.4-5.1) Magnesium Level 2.0 mg/dL (1.6-2.6) Vitamin B12 Level 1455 pg/mL (211-911) Vitamin D 25-Hydroxy 22.2 ng/mL (30.0-100) Beta-Hydroxybutyric Acid 0.884 mmol/L (< 0.4) Thyroid Stimulating Hormone (TSH) 4.35 uIU/mL (0.55-4.78) Blood Gas Specimen Type Venous Blood Gas Sample Site Vbg - n/a Blood Gas Patient Temperature 37.0 Arterial Blood Date Drawn [id number] [place] Test N/a Venous Blood pH 7.426 (7.320-7.430) Venous Blood pCO2 at Patient Temp 37.9 mmHg (38.0-54.0) Venous Blood pO2 at Patient Temp 66.2 mmHg (23.0-48.0) Venous Blood HCO3 24.4 mmol/L (22.0-29.0) Venous Blood Base Excess 0.3 mmol/L (-2.0-3.0) Blood Gas Modality Room air FiO2 % 21.0 Specimen Drawn By Lab Other Laboratory Tests 12/24/24 06:56 12/23/24 04:36 Brief Hx & Hospital Course: 44-year-old male patient with pmhx Diabetes non-insulin dependent, diabetic foot status post amputation, alcohol abuse, who presents to the ED with chief complaint of blurry vision for the last week, associated with polyuria, polydipsia, diarrhea and dizziness. Patient says that he is currently homeless, previously lived in a correction but was kicked out approximately three months ago, and he has not been compliant with his medication (including his diabetic medication). He has been checking his blood glucose levels recently, but his glucometer could no longer read his glycemia values. Denies any other associated symptoms. 12/23: Patient is here for alcohol rehab, he left arm is medications at home. He takes sliding scale insulin likely at home to control his diabetes altered his metformin. We will start patient on basal insulin and continue low carb d iet. Continue sliding scale insulin mild a.c. HS. We will refills all medications prior to discharge. Patient appears to have low CIWA score, no concern for withdrawal at this time. - we will continue 15 nightly insulin and continuing monitoring a.c. HS with mild SSI, patient glucose looks well, he can probably go home with long-acting insulin and metformin only. 12/24: Patient doing well, had hyperglycemia again overnight went from 200 to 500s, unknown reason why, unclear if patient has had needs next. We will continue and increase Lantus to 20 and continue scale at moderate a.c. HS. Monitor again for another 24 hours. 12/25: stable BG levels. 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 Patient was counseled about treatment plan, medications, possible side effects, patientverbalized understanding. All questions were answered to the best of my ability. This discharge took greater then 30 minutes in planning, reviewing documentation, counseling the patient, and discussing with other team members." ASSESSMENT ASSESSMENT Assessment Date of Service: Dec 25, 2024 Billing Provider: BETHANIE LOYA MD Common Visit Codes: [id number] DISCH DAY >30min BETHANIE LOYA MD Dec 25, 2024 12:10
[2024-12-25 12:26] VITALS: BP 139/90; PULSE 96; RESP 16; TEMP 98.3; O2SAT 97
[2024-12-25 13:00] VITALS: BP 132/90; PULSE 96; RESP 20; TEMP 97.7; O2SAT 97
--- NOTE | 2024-12-29 18:25 | DVHSR ---
APPROVED REPORT EXAM: Two-dimensional and M-mode echocardiogram with Doppler and color Doppler. Blood Pressure: 116/84 mmHg RISK FACTORS Height: 5'3", Weight: 126 DIMENSIONS LVDd3.5 (3.8-5.7cm)LA (2D)3.4 (1.9-4.0cm)Aortic Root2.8 (2.0-3.7cm) LVDs2.0 (2.5-4.0cm)LA (MM) (1.9-4.0cm)Aortic Cusp Exc1.9 (1.5-2.0cm) EF (%) 76.0 (55-70%)Rt. Atrium2.9 (1.9-4.0cm)Asc. Aorta2.8 cm IVSd1.2 (0.7-1.1cm)RV (D) (1.8-2.4cm) PWd0.8 (0.7-1.1cm) Mitral Valve MitralMitral Stenosis E wave0.51m/sMV Mean GR.mmHg A wave0.82m/sMV Peak GR.mmHg E/A ratio0.62D MVAcm2 DECEL [id number] 1/2 [place] Aortic Valve Aortic ValveAortic Stenosis V10.81m/Preet Mean GR.2mmHg V20.76m/Preet Peak GR.2mmHg LVOT Diameter2.1 (1.8-2.4cm)Doppler AVA3.69cm2 Pulmonic Valve V20.76m/s Other Information Quality : Technically LimitedRhythm : Technically limited study due to body habitus. Conclusion Sinus rhythm, Concentric LVH, mild LAE Valves are normal EF normal. Normal RV function. 65% LVEF Normal Doppler No masses or vegetations No PE
== END 2024-12-25 13:30 | disposition home or self-care (01) | DRG 420 ==
LOC: ER 21:02 → OVERFLOW 12-23 00:24 → TELE-WESTW 12-23 18:30
PROVIDERS: ADMIT Student in an Organized Health Care Education/Training Program; ATTEND Student in an Organized Health Care Education/Training Program
DX: E11.00 Type 2 diabetes mellitus with hyperosmolarity without nonketotic hyperglycemic-hyperosmolar coma (NKHHC) (principal); N17.0 Acute kidney failure with tubular necrosis; Z59.00 Homelessness unspecified; F10.10 Alcohol abuse, uncomplicated; E11.65 Type 2 diabetes mellitus with hyperglycemia; R74.01 Elevation of levels of liver transaminase levels; Z91.148 Patient's other noncompliance with medication regimen for other reason; Z89.411 Acquired absence of right great toe; Z79.4 Long term (current) use of insulin; Z79.84 Long term (current) use of oral hypoglycemic drugs; Z83.3 Family history of diabetes mellitus; Y90.9 Presence of alcohol in blood, level not specified
CPT/HCPCS: 36415; 36600; 71045; 80048; 80053; 80074; 80307; 80320; 81001; 82010; 82306; 82607; 82805; 82962; 83036; 83605; 83735; 83930; 84100; 84443; 85025; 85610; 85730; 86703; 86780; 93306; 93886; 99291; G0378; J1815

== ENCOUNTER 2025-01-12 21:02 | Emergency (ER) | payer OTHER ==
[~2025-01-12] VITALS: Ht 162.6 cm; Wt 58.9 kg
[~2025-01-12 21:02] MED LIST: INSUINJ37 SC; METF-489 PO
[2025-01-12 21:05] VITALS: TEMP 97.7
--- NOTE | 2025-01-12 21:51 | ED.PDOC ---
History of Present Illness HPI Comments 44 y/o [place]er-speaking M, with a history of DM, presents with c/c of hyperglycemia. Patient reports checking and noticing his blood glucose levels being elevated, this evening, after he began experiencing dizziness and fatigue, earlier. He reports on being compliant with his BID insulin medication, with las t oral intake being this morning. He states on not taking his night dose prior to ED arrival. Denies any shortness of breath, nausea, vomiting, or further associated symptoms. Chief Complaint: Hyperglycemia Time Seen by MD: 21:30 Reviewed Notes: Nurses Notes, Medications, Allergies Allergies: Coded Allergies: NO KNOWN ALLERGIES (Unverified , 12/22/24) Home Meds Active Scripts Metformin Hydrochloride (METFORMIN HCL ER) 500 Mg Tab, 2 TAB PO BID for 30 Days, #120 TAB 1 Refill Prov:BETHANIE LOYA MD 12/25/24 Insulin Glargine (Lantus Solostar) 100 Unit/Ml Inj, 20 UNIT SC HS for 30 Days, #2 INJ 1 Refill Prov:BETHANIE LOYA MD 12/25/24 Information Source: Patient Mode of Arrival: Ambulatory Severity: Moderate Timing: Hours Duration: Since onset Prehospital treatment: None Past Medical History PAST MEDICAL HISTORY: DM Surgical History: Denies all surgeries Family History Family History: Unknown Social History Smoker: Non-Smoker Alcohol: Denies ETOH Use Drugs: Denies Drug Use Lives In: Home All Other Systems: Reviewed and Negative (Comprehensive review of systems are negative unless stated in HPI) Physical Exam General Appearance: Mild Distress, Normal HEENT: Normal ENT Inspection, Pharynx Normal, TMs Normal Neck: Full Range of Motion, Non-Tender, Normal, Normal Inspection Respiratory: Chest Non-Tender, Lungs Clear, No Accessory Muscle Use, No Respiratory Distress, Normal Breath Sounds Cardiovascular: No Edema, No JVD, No Murmur, No Gallop, Normal Peripheral Pulses, Regular Rate/Rhythm Breast Exam: Deferred Gastrointestinal: No Organomegaly, Non Tender, No Pulsatile Mass, Normal Bowel Sounds, Soft Genitalia: Deferred Pelvic: Deferred Rectal: Deferred Extremities: No calf tenderness, Normal capillary refill, Normal inspection, Normal range of motion, Non-tender, No pedal edema Musculoskeletal : Apperance: Normal Neurologic: Alert, master glazier II-XII nml as Tested, No Motor Deficits, Normal Affect, Normal Mood, No Sensory Deficits Cerebellar Function: Normal Reflexes: Normal Skin: Dry, Normal Color, Warm Lymphatic: No Adenopathy Was a procedure done? Was a procedure done?: No Differential Dx Considerations may include: hyperglycemia, DKA, medication noncompliance, inappropriate medication dosage X-Ray, Labs, Meds, VS Vital Signs Date Time Temp Pulse Resp B/P (MAP) Pulse Ox O2 Delivery O2 Flow Rate FiO2 01/13/25 03:17 95 14 120/72 (88) 99 01/13/25 02:09 Room Air* 0 21 01/12/25 21:05 97.7 100 13 121/75 98 97.7 Lab Test 01/13/25 01:30 01/12/25 22:50 01/12/25 21:38 01/12/25 21:12 Range/Units POC Glucose 380 H 516 *H 70-106 mg/dl White Blood Count 3.7 L 4.4-10.8 10^3/uL Red Blood Count 3.68 L 4.5-5.90 10^6/uL Hemoglobin 11.3 L 13.5-17.5 g/dL Hematocrit 33.1 L 41.0-53.0 % Mean Corpuscular Volume 89.9 80.0-100.0 fL Mean Corpuscular Hemoglobin 30.8 28.0-32.0 pg Mean Corpuscular Hemoglobin Concent 34.2 32.0-36.0 g/dL Red Cell Distribution Width 13.8 11.8-14.3 % Platelet Count 156 140-450 10^3/uL Mean Platelet Volume 8.2 6.9-10.8 fL Neutrophils (%) (Auto) 57.8 37.0-80.0 % Lymphocytes (%) (Auto) 31.9 10.0-50.0 % Monocytes (%) (Auto) 7.4 0.0-12.0 % Eosinophils (%) (Auto) 2.3 0.0-7.0 % Basophils (%) (Auto) 0.6 0.0-2.0 % Neutrophils # (Auto) 2.1 1.6-8.6 10 ^3/uL Lymphocytes # (Auto) 1.2 0.4-5.4 10 ^3/uL Monocytes # (Auto) 0.3 0-1.3 10 ^3/uL Eosinophils # (Auto) 0.1 0-0.8 10 ^3/uL Basophils # (Auto) 0 0-0.2 10 ^3/uL Nucleated Red Blood Cells 0.1 % Sodium Level 130 L 136-145 mmol/L Potassium Level 4.0 3.5-5.1 mmol/L Chloride Level 97 L 98-107 mmol/L Carbon Dioxide Level 23 20-31 mmol/L Anion Gap 10 5-15 Blood Urea Nitrogen 16 9-23 mg/dL Creatinine 1.04 0.700-1.30 mg/dL Glomerular Filtration Rate Calc 90 >90 mL/min BUN/Creatinine Ratio 15.4 10.0-20.0 Serum Glucose 474 *H 74-106 mg/dL Calcium Level 9.4 8.7-10.4 mg/dL Total Bilirubin 0.3 0.2-1.0 mg/dL Aspartate Amino Transferase (AST) 16 13-40 U/L Alanine Aminotransferase (ALT) 20 7-40 U/L Alkaline Phosphatase 208 H 46-116 U/L Total Protein 7.9 5.7-8.2 g/dL Albumin 4.4 3.2-4.8 g/dL Blood Gas Specimen Type Venous Blood Gas Sample Site Vbg - n/a Blood Gas Patient Temperature 37.0 Arterial Blood Date Drawn [id number] [place] Test N/a Venous Blood pH 7.336 7.320-7.430 Venous Blood pCO2 at Patient Temp 44.9 38.0-54.0 mmHg Venous Blood pO2 at Patient Temp < 36.5 23.0-48.0 mmHg Venous Blood HCO3 23.5 22.0-29.0 mmol/L Venous Blood Base Excess -2.5 L -2.0-3.0 mmol/L Blood Gas Modality Room air FiO2 % 21.0 Test 01/12/25 21:10 Range/Units POC Glucose 526 *H 70-106 mg/dl Current Medications Medications (Trade) Dose Ordered Sig/[place] Route Start Time Stop Time Status Last Admin Insulin Human Regular (InsuLIN R) 6 units ONCE ONCE SC 01/12/25 21:30 01/12/25 21:31 DC 01/13/25 01:49 Time of 1ST Reevaluation: 22:00 Reevaluation 1ST: Unchanged Patient Education/Counseling: Diagnosis, Treatment, Need For Follow Up Family Education/Counseling: No Family Present SEPSIS Sepsis Screen Date sepsis recognized/suspect: Jan 12, 2025 Time Sepsis recognized/suspect: 2104 Recent Procedure: No On Antibiotic Therapy: No Respiratory Rate >20: No Heart Rate >90: Yes Temp<36 C (96.8 F) or >38.3 C: No SBP <90 or MAP <65 mmHG: No New Acute Mental Status Change: No Is the patient on CPAP, BIPAP,: No Physician Orders Urinalysis (01/12/25 21:20) Venous Blood Gas (01/12/25 21:20) Vital Signs Date Time Temp Pulse Resp B/P (MAP) Pulse Ox O2 Delivery O2 Flow Rate FiO2 01/13/25 03:17 95 14 120/72 (88) 99 01/13/25 02:09 Room Air* 0 21 01/12/25 21:05 97.7 100 13 121/75 98 97.7 Laboratory Tests Test 01/12/25 22:50 White Blood Count 3.7 10^3/uL (4.4-10.8) L Medications Medications Dose Ordered Sig/[place] Route Start Time Stop Time Status Last Admin Dose Admin Insulin Human Regular 6 units ONCE ONCE SC 01/12/25 21:30 01/12/25 21:31 DC 01/13/25 01:49 Departure 1 Departure Time of Disposition: 23:30 Impression: Primary Impression: Uncontrolled type 2 diabetes mellitus Additional Impression: Hyperglycemia Disposition: 01 HOME / SELF CARE / HOMELESS Condition: Stable Discharged With: Self Critical Care Note Critical Care Time?: No Stability Stability form required: No Heart Score Heart Score: Heart Score Response (Comments) Value History N/A 0 EKG N/A 0 Age N/A 0 Risk Factors N/A 0 Troponin N/A 0 Total 0 I personally scribed for DANIELA GOODRICH MD ([email or web address]) on 01/12/25 at 21:51. Electronically submitted by Seth Araya [email or web address]). DANIELA GOODRICH MD Jan 12, 2025 21:51
[2025-01-12 23:06] LABS: Hematocrit 33.1 % (41.0-53.0); Hemoglobin 11.3 g/dL (13.5-17.5); Mean Corpuscular Hemoglobin 30.8 pg (28.0-32.0); Mean Corpuscular Volume 89.9 fL (80.0-100.0); Nucleated Red Blood Cells % 0.1 %
[2025-01-12 23:21] LABS: Alanine Aminotransferase 20 U/L (7-40); Albumin 4.4 g/dL (3.2-4.8); Anion Gap 10 (5-15); BUN/Creatinine Ratio 15.4 (10.0-20.0); Blood Urea Nitrogen 16 mg/dL (9-23); Calcium 9.4 mg/dL (8.7-10.4); Carbon Dioxide 23 mmol/L (20-31); Potassium 4.0 mmol/L (3.5-5.1); Total Protein 7.9 g/dL (5.7-8.2)
[2025-01-12 23:22] LABS: Alkaline Phosphatase 208 U/L (46-116); Bilirubin, Total 0.3 mg/dL (0.2-1.0); Chloride 97 mmol/L (98-107); Sodium 130 mmol/L (136-145)
[2025-01-12 23:24] LABS: Glucose 474 mg/dL (74-106)
[2025-01-13] MEDS: InsuLIN REG 1unit/0.01ml Soln (100units/ml) SC ONE (01:49)
[2025-01-13] MEDS: SODIUM CHLORIDE 0.9% 1,000 ML IVB ONE (01:53)
[2025-01-13 03:17] VITALS: BP 120/72; PULSE 95; RESP 14; O2SAT 99
== END 2025-01-13 03:21 | disposition home or self-care (01) ==
LOC: ER 21:02
DX: E11.65 Type 2 diabetes mellitus with hyperglycemia (principal); Z79.899 Other long term (current) drug therapy
CPT/HCPCS: 36415; 36600; 80053; 82805; 82947; 85025; 96372; 99283; J1815; 82962

== ENCOUNTER 2025-01-25 11:58 | Emergency (ER) | payer OTHER ==
[~2025-01-25] VITALS: Ht 154.9 cm; Wt 59.1 kg
--- NOTE | 2025-01-25 12:51 | ED.PDOC ---
History of present illness HPI Comments 44-year-old male [place]-speaking presented to the emergency department because of high blood sugar high blood pressure and dizzy spells over the past week his blood sugar has been over 400 Chief Complaint: Hyperglycemia Time Seen by MD: 12:07 Allergies: Coded Allergies: NO KNOWN ALLERGIES (Unverified , 12/22/24) Home Meds Active Scripts Metformin Hydrochloride (METFORMIN HCL ER) 500 Mg Tab, 2 TAB PO BID for 30 Days, #120 TAB 1 Refill Prov:BETHANIE LOYA MD 12/25/24 Insulin Glargine (Lantus Solostar) 100 Unit/Ml Inj, 20 UNIT SC HS for 30 Days, #2 INJ 1 Refill Prov:BETHANIE LOYA MD 12/25/24 Information Source: Patient, Emergency Med Personnel Mode of Arrival: Ambulatory Timing: Days Duration: Since onset [place]: None Symptoms: Eating poorly History of: Diabetes, Insulin use, Oral hypoglycemic use, Frequent hyperglycemic Modifying factors: Nothing Associated signs and symptoms: Tremor Past Medical History PAST MEDICAL HISTORY: DM, HTN Surgical History: Denies all surgeries Surgical History (Other): Amputation right great toe Family History Family History: Unknown Social History Smoker: Non-Smoker Alcohol: Denies ETOH Use Drugs: Denies Drug Use Lives In: Home Constitutional: reports: fatigue, malaise, weakness; denies: chills, diaphoresis, fever, sweats, others EENTM: reports: blurred vision; denies: double vision, ear bleeding, ear discharge, ear drainage, ear pain, ear ringing, eye pain, eye redness, hearing loss, mouth pain, mouth swelling, nasal discharge, nose bleeding, nose congestion, nose pain, photophobia, tearing, throat pain, throat swelling, voice changes, others Respiratory: denies: cough, hemoptysis, orthopnea, SOB at rest, shortness of breath, SOB with excertion, stridor, wheezing, others Cardiovascular: reports: dizzy spells; denies: chest pain, diaphoresis, Dyspnea on exertion, edema, irregular heart beat, left arm pain, lightheadedness, pa lpitations, PND, syncope, others Gastrointestinal: denies: abdomen distended, abdominal pain, blood streaked bowels, constipated, diarrhea, dysphagia, difficulty swallowing, hematemesis, melena, nausea, poor appetite, poor fluid intake, rectal bleeding, rectal pain, vomiting, others Genitourinary: reports: frequency; denies: burning, dysuria, flank pain, hematuria, incontinence, penile discharge, penile sore, pain, testicle pain, testicle swelling, urgency, others Neurological: reports: dizziness; denies: fainting, headache, left sided numbness, left sided weakness, numbness, paresthesia, pre-existing deficit, right sided numbness, right sided weakness, seizure, speech problems, tingling, tremors, weakness, others Integumetry: denies: bruises, change in color, change in hair/nails, dryness, laceration, lesions, lumps, rash, wounds, others Allergic/Immunocompromised: denies: Difficulty Healing, Frequent Infections, Hives, Itching, others Hematologic/Lymphatic: denies: anemia, blood clots, easy bleeding, easy bruising, swollen glands, others Endocrine: denies: excessive hunger, excessive sweating, excessive thirst, excessive urination, flushing, intolerance to cold, intolerance to heat, unexplained weight gain, unexplained weight loss, others Psychiatric: denies: anxiety, bipolar disorder, depression, hopeless, panic disorder, schizophrenia, sleepless, suicidal, others All Other Systems: Reviewed and Negative Physical Exam General Appearance: Mild Distress, Normal HEENT: Normal ENT Inspection, PERRL/EOMI Neck: Full Range of Motion, Non-Tender, Normal, Normal Inspection Respiratory: Chest Non-Tender, Lungs Clear, No Accessory Muscle Use, No Respiratory Distress, Normal Breath Sounds Cardiovascular: No Edema, No JVD, No Murmur, No Gallop, Normal Peripheral Pulses, Regular Rate/Rhythm Breast Exam: Deferred Gastrointestinal: No Organomegaly, Non Tender, No Pulsatile Mass, Normal Bowel Sounds, Soft Genitalia: Deferred Pelvic: Deferred Rectal: Deferred Extremities: No calf tenderness, Normal capillary refill, Normal inspection, Normal range of motion, Non-tender, No pedal edema Neurologic: Alert, odd ticket clerk II-XII nml as Tested, Dizziness, No Motor Deficits, Normal Affect, Normal Mood, No Sensory Deficits Cerebellar Function: Normal Reflexes: Normal Skin: Dry, Normal Color, Warm Peripheral Pulses: 1+ carotid (R), 1+ carotid (L) Lymphatic: No Adenopathy Was a procedure done? Was a procedure done?: No Differential Diagnosis (DM) Differential Diagnosis: Dehydration, DKA, Electrolyte Abnormality, Hyperglycemia, Hyperosmolar State X-Ray, Labs, Meds, VS Vital Signs Date Time Temp Pulse Resp B/P (MAP) Pulse Ox O2 Delivery O2 Flow Rate FiO2 01/25/25 15:11 93 16 98 Room Air* 0 21 01/25/25 15:10 97.7 93 16 134/97 (109) 100 97.7 01/25/25 12:08 98.9 100 16 93/70 98 98.9 Lab Test 01/25/25 15:06 01/25/25 12:53 Range/Units POC Glucose 325 H 70-106 mg/dl White Blood Count 7.5 4.4-10.8 10^3/uL Red Blood Count 3.93 L 4.5-5.90 10^6/uL Hemoglobin 11.8 L 13.5-17.5 g/dL Hematocrit 35.0 L 41.0-53.0 % Mean Corpuscular Volume 89.1 80.0-100.0 fL Mean Corpuscular Hemoglobin 30.0 28.0-32.0 pg Mean Corpuscular Hemoglobin Concent 33.7 32.0-36.0 g/dL Red Cell Distribution Width 13.1 11.8-14.3 % Platelet Count 217 140-450 10^3/uL Mean Platelet Volume 7.6 6.9-10.8 fL Neutrophils (%) (Auto) 74.0 37.0-80.0 % Lymphocytes (%) (Auto) 15.8 10.0-50.0 % Monocytes (%) (Auto) 9.7 0.0-12.0 % Eosinophils (%) (Auto) 0.3 0.0-7.0 % Basophils (%) (Auto) 0.2 0.0-2.0 % Neutrophils # (Auto) 5.6 1.6-8.6 10 ^3/uL Lymphocytes # (Auto) 1.2 0.4-5.4 10 ^3/uL Monocytes # (Auto) 0.7 0-1.3 10 ^3/uL Eosinophils # (Auto) 0 0-0.8 10 ^3/uL Basophils # (Auto) 0 0-0.2 10 ^3/uL Nucleated Red Blood Cells 0.0 % Sodium Level 130 L 136-145 mmol/L Potassium Level 4.9 3.5-5.1 mmol/L Chloride Level 95 L 98-107 mmol/L Carbon Dioxide Level 27 20-31 mmol/L Anion Gap 8 5-15 Blood Urea Nitrogen 13 9-23 mg/dL Creatinine 1.14 0.700-1.30 mg/dL Glomerular Filtration Rate Calc 80 >90 mL/min BUN/Creatinine Ratio 11.4 10.0-20.0 Serum Glucose 395 H 74-106 mg/dL Calcium Level 9.3 8.7-10.4 mg/dL Magnesium Level 2.0 1.6-2.6 mg/dL Total Bilirubin 0.5 0.2-1.0 mg/dL Aspartate Amino Transferase (AST) 14 13-40 U/L Alanine Aminotransferase (ALT) 12 7-40 U/L Alkaline Phosphatase 133 H 46-116 U/L Total Protein 8.3 H 5.7-8.2 g/dL Albumin 4.4 3.2-4.8 g/dL Current Medications Medications (Trade) Dose Ordered Sig/[place] Route Start Time Stop Time Status Last Admin Sodium Chloride 1,000 ml @ 1,000 mls/hr Q1H ONCE IV 01/25/25 12:45 01/25/25 13:44 DC 01/25/25 12:52 Insulin Human Lispro (HumaLOG) 10 units ONCE ONCE SC 01/25/25 14:30 01/25/25 14:31 DC 01/25/25 15:12 X-Ray, Labs, Meds, VS Comment Patient came to the emergency department because of hyperglycemia and dizziness is 44 years old CBC is normal CMP sodium is 130 Blood sugar is 395 Patient has been hydrated and medicated His blood sugar is lower and will be discharged home to follow up with his PCP Time of 1ST Reevaluation: 12:07 Reevaluation 1ST: Unchanged Time of 2ND Reevaluation: 16:48 Reevaluation 2ND: Unchanged Consultation: Cardiology Patient Education/Counseling: Diagnosis, Treatment, Prognosis, Need For Follow Up Family Education/Counseling: Diagnosis, Treatment, Prognosis, Need For Follow Up, No Family Present SEPSIS Sepsis Screen Date sepsis recognized/suspect: Jan 25, 2025 Time Sepsis recognized/suspect: 1208 Recent Procedure: No On Antibiotic Therapy: No Respiratory Rate >20: No Heart Rate >90: Yes Temp<36 C (96.8 F) or >38.3 C: No SBP <90 or MAP <65 mmHG: No New Acute Mental Status Change: No Is the patient on CPAP, BIPAP,: No Physician Orders Heplock Iv (01/25/25 12:43) Blood Pressure (01/25/25 12:43) Accucheck (01/25/25 15:49) Vital Signs Date Time Temp Pulse Resp B/P (MAP) Pulse Ox O2 Delivery O2 Flow Rate FiO2 01/25/25 15:11 93 16 98 Room Air* 0 21 01/25/25 15:10 97.7 93 16 134/97 (109) 100 97.7 01/25/25 12:08 98.9 100 16 93/70 98 98.9 Laboratory Tests Test 01/25/25 12:53 White Blood Count 7.5 10^3/uL (4.4-10.8) Medications Medications Dose Ordered Sig/[place] Route Start Time Stop Time Status Last Admin Dose Admin Insulin Human Lispro 10 units ONCE ONCE SC 01/25/25 14:30 01/25/25 14:31 DC 01/25/25 15:12 Sodium Chloride 1,000 ml @ 1,000 mls/hr Q1H ONCE IV 01/25/25 12:45 01/25/25 13:44 DC 01/25/25 12:52 Departure 1 Departure Time of Disposition: 16:00 Impression: Primary Impression: Uncontrolled type 2 diabetes mellitus Qualified Codes: E11.65 - Type 2 diabetes mellitus with hyperglycemia Disposition: 01 HOME / SELF CARE / HOMELESS Condition: Fair Additional Instructions: Push fluids and increase your insulin and follow up with your PCP Need strict diabetic diet If the blood sugar is over 200 use 10 units of Lantus otherwise use your 4 units to 3 times a day Metformin take it twice a day Discharged With: Self Critical Care Note Critical Care Time?: No Stability Stability form required: No Heart Score Heart Score: Heart Score Response (Comments) Value History N/A 0 EKG N/A 0 Age 45-64 1 Risk Factors 1 or 2 risk factors 1 Troponin N/A 0 Total 2 DARBY FALL MD Jan 25, 2025 12:51
[2025-01-25] MEDS: SODIUM CHLORIDE 0.9% 1,000 ML IV ONE (12:52)
[2025-01-25 13:01] LABS: Hematocrit 35.0 % (41.0-53.0); Hemoglobin 11.8 g/dL (13.5-17.5); Mean Corpuscular Hemoglobin 30.0 pg (28.0-32.0); Mean Corpuscular Volume 89.1 fL (80.0-100.0); Nucleated Red Blood Cells % 0.0 %
[2025-01-25 13:16] LABS: Alanine Aminotransferase 12 U/L (7-40); Anion Gap 8 (5-15); BUN/Creatinine Ratio 11.4 (10.0-20.0); Blood Urea Nitrogen 13 mg/dL (9-23); Calcium 9.3 mg/dL (8.7-10.4); Carbon Dioxide 27 mmol/L (20-31); Magnesium 2.0 mg/dL (1.6-2.6); Potassium 4.9 mmol/L (3.5-5.1)
[2025-01-25 13:17] LABS: Albumin 4.4 g/dL (3.2-4.8); Alkaline Phosphatase 133 U/L (46-116); Bilirubin, Total 0.5 mg/dL (0.2-1.0); Chloride 95 mmol/L (98-107); Glucose 395 mg/dL (74-106); Sodium 130 mmol/L (136-145); Total Protein 8.3 g/dL (5.7-8.2)
[2025-01-25 15:10] VITALS: BP 134/97; TEMP 97.7
[2025-01-25 15:11] VITALS: PULSE 93; RESP 16; O2SAT 98
[2025-01-25] MEDS: INSULIN LISPRO (HUMAN) 100 UNITS/ML ML SC ONE (15:12)
== END 2025-01-25 16:14 | disposition home or self-care (01) ==
LOC: ER 11:58
DX: E11.65 Type 2 diabetes mellitus with hyperglycemia (principal); I10 Essential (primary) hypertension; Z79.899 Other long term (current) drug therapy
CPT/HCPCS: 36415; 80053; 82947; 83735; 85025; 96360; 96372; 99283; J1815; J7030; 82962